=== PATIENT | female | born 2000 | race Two or more races ===

== ENCOUNTER 2023-06-08 21:35 | Observation (INO) | payer MEDICAID ==
[~2023-06-08] VITALS: Ht 170.2 cm; Wt 74.4 kg
[2023-06-08 22:43] LABS: Alcohol, Urine < 3.0 mg/dL (0-10); Amphetamine Screen, Urine NEGATIVE (NEGATIVE); Barbiturate Scree,Urine NEGATIVE (NEGATIVE); Benzodiazephine Screen, Urine NEGATIVE (NEGATIVE); Cannabinoid Screen, Urine NEGATIVE (NEGATIVE); Cocaine Screen, Urine NEGATIVE (NEGATIVE); Opiate Scree,Urine NEGATIVE (NEGATIVE); Phencyclidine Screen, Urine NEGATIVE (NEGATIVE)
[2023-06-08 22:51] LABS: Urine Bacteria NONE SEEN /hpf (None Seen); Urine Blood Negative /uL (Negative); Urine Mucus FEW (None Seen); Urine Specific Gravity 1.021 (1.001-1.035); Urine WBC 50 /hpf (0 - 5)
== END 2023-06-08 23:59 | disposition home or self-care (01) ==
LOC: LDRP 21:35
PROVIDERS: ADMIT Obstetrics & Gynecology; ATTEND Obstetrics & Gynecology
DX: O26.892 Other specified pregnancy related conditions, second trimester (principal); R10.9 Unspecified abdominal pain; R51.9 Headache, unspecified; Z3A.27 27 weeks gestation of pregnancy; Z79.899 Other long term (current) drug therapy
CPT/HCPCS: 59025; 80307; 81001; 81002; 94760; G0378

== ENCOUNTER 2023-07-01 18:37 | Observation (INO) | payer MEDICAID ==
[~2023-07-01] VITALS: Ht 170.2 cm; Wt 90.7 kg
[2023-07-01] MEDS ORDERED: NITR-87 PO (21:14)
[2023-07-01] MEDS ORDERED: PREN-96 PO (21:14)
== END 2023-07-01 20:14 | disposition home or self-care (01) ==
LOC: LDRP 18:37
PROVIDERS: ADMIT Obstetrics & Gynecology; ATTEND Obstetrics & Gynecology
DX: O23.43 Unspecified infection of urinary tract in pregnancy, third trimester (principal); O26.853 Spotting complicating pregnancy, third trimester; O62.9 Abnormality of forces of labor, unspecified; O99.513 Diseases of the respiratory system complicating pregnancy, third trimester; J45.909 Unspecified asthma, uncomplicated; Z3A.31 31 weeks gestation of pregnancy
CPT/HCPCS: 59025; 81002; 94760; G0378

== ENCOUNTER 2023-08-08 21:35 | Observation (INO) | payer MEDICAID ==
[~2023-08-08] VITALS: Ht 172.7 cm; Wt 93.4 kg
[~2023-08-08 21:35] MED LIST: NITR-87 PO; PREN-96 PO
== END 2023-08-08 22:45 | disposition home or self-care (01) ==
LOC: LDRP 21:35
PROVIDERS: ADMIT Obstetrics & Gynecology; ATTEND Obstetrics & Gynecology
DX: O46.93 Antepartum hemorrhage, unspecified, third trimester (principal); O26.893 Other specified pregnancy related conditions, third trimester; R10.30 Lower abdominal pain, unspecified; O99.891 Other specified diseases and conditions complicating pregnancy; M54.9 Dorsalgia, unspecified; Z3A.37 37 weeks gestation of pregnancy
CPT/HCPCS: 59025; 81002; 94760; G0378

== ENCOUNTER 2024-07-27 20:23 | Emergency (ER) | payer MEDICAID ==
[~2024-07-27] VITALS: Ht 172.7 cm; Wt 88.0 kg
[2024-07-27 20:40] VITALS: BP 119/72; PULSE 82
[2024-07-27 21:24] VITALS: RESP 16; O2SAT 98
[2024-07-27] MEDS: IPRATROPIUM BROM 0.5 MG/2.5ML INH SOL NEB ONE (21:24)
[2024-07-27] MEDS: ALBUTEROL SULF 2.5 MG/0.5ML(0.5%) NEB SOLN NEB ONE (21:24)
[2024-07-27] MEDS ORDERED: ALBUAER3 IN (21:25)
[2024-07-27] MEDS ORDERED: BECL40AE11 IN (21:25)
== END 2024-07-28 | disposition home or self-care (01) ==
LOC: ER 20:23
DX: J45.901 Unspecified asthma with (acute) exacerbation (principal)
CPT/HCPCS: 94640